=== PATIENT | male | born 1945 | race Asian ===

== ENCOUNTER 2022-10-26 09:15 | Day surgery (SDC) | payer MEDICARE, BC ==
[2022-10-26] VITALS (12 sets, daily range): BP systolic 114–159; BP diastolic 59–81
[~2022-10-26] VITALS: Ht 160 cm; Wt 70.9 kg
[2022-10-26] MEDS ORDERED: iohexol 350 MG/ML 50ML vial IV ONE (09:29)
[2022-10-26] MEDS ORDERED: iohexol 350MG/ML 100ml bottle IV ONE (09:29)
[2022-10-26] MEDS ORDERED: midazolam 1 mg/ML 2ml injection ONE (09:29)
[2022-10-26] MEDS ORDERED: fentaNYL/PF 50MCG/1 ML 2ML syringe ONE (09:29)
[2022-10-26] MEDS ORDERED: LIDOcaine 1% 30ml preserv. free vial ONE (09:29)
[2022-10-26] MEDS ORDERED: LOSA100T58 PO (10:05)
[2022-10-26] MEDS ORDERED: NITR0.4T48 SL (10:05)
[2022-10-26] MEDS ORDERED: OXYB5TAB16 PO (10:05)
[2022-10-26] MEDS ORDERED: HYDR-3686 PO (10:05)
[2022-10-26] MEDS ORDERED: AZEL30SP3 BOTHNARES (10:05)
[2022-10-26] MEDS ORDERED: TEST200V33 IM (10:05)
[2022-10-26] MEDS ORDERED: PIOG30TA72 PO (10:05)
[2022-10-26] MEDS ORDERED: LEVA15HF6 NAS (10:05)
[2022-10-26] MEDS ORDERED: METO5TAB85 PO (10:05)
[2022-10-26] MEDS ORDERED: FLUT16SP20 BOTHNARES (10:05)
[2022-10-26] MEDS ORDERED: MUPI22OI30 TOP (10:05)
[2022-10-26] MEDS ORDERED: MONT-40 PO (10:05)
[2022-10-26] MEDS ORDERED: METO-395 PO (10:05)
[2022-10-26] MEDS ORDERED: FLO0.4C PO (10:05)
[2022-10-26] MEDS ORDERED: METF-1203 PO (10:05)
[2022-10-26] MEDS ORDERED: FURO-150 PO (10:05)
[2022-10-26] MEDS ORDERED: GLIM2TAB6 PO (10:05)
[2022-10-26] MEDS ORDERED: ROSU40TA22 PO (10:05)
[2022-10-26] MEDS ORDERED: FLUT1BLS10 INH (10:05)
[2022-10-26] MEDS ORDERED: ASPI-611 PO (10:05)
[2022-10-26] MEDS ORDERED: FAMO40TA58 PO (10:05)
[2022-10-26 10:10] LABS: BASOPHILS % (AUTO) 0.7 % (0-1); EOSINOPHILS # (AUTO) 0.4 X10'3 (0-0.9); EOSINOPHILS % (AUTO) 6.7 % (0-6); HEMATOCRIT 40.8 % (42.0-52.0); HEMOGLOBIN 13.8 g/dl (14.0-17.9); LYMPHOCYTES # (AUTO) 1.6 X10'3 (1.1-4.8); MEAN CORPUSCULAR HEMOGLOBIN 31.6 PG (27.0-31.0); MEAN CORPUSCULAR HGB CONC 33.8 g/dL (33.0-36.5); MEAN CORPUSCULAR VOLUME 93.3 FL (78-98); MEAN PLATELET VOLUME 8.6 FL (7.4-10.4); MONOCYTES # (AUTO) 0.6 X10'3 (0-0.9); MONOCYTES % (AUTO) 11.4 % (2-12); NEUTROPHILS # (AUTO) 2.7 X10'3 (1.8-7.7); NEUTROPHILS % (AUTO) 50.2 % (42-75); PLATELET COUNT 191 X10'3 (140-440); RED BLOOD COUNT 4.37 X10'6 (4.70-6.10); RED CELL DISTRIBUTION WIDTH 14.5 % (11.5-14.5); WHITE BLOOD COUNT 5.3 X10'3 (4.5-11.0)
[2022-10-26 10:15] LABS: APTT 25 SECONDS (22-32)
[2022-10-26] MEDS ORDERED: normal saline 1,000 ML IV SCH (10:15)
[2022-10-26] MEDS ORDERED: nitroGLYCERIN 0.4mg SUBLingual tab SL PRN ×2 (10:15→12:15)
[2022-10-26] MEDS ORDERED: LORazepam 0.5 MG tablet PO PRN (10:15)
[2022-10-26] MEDS ORDERED: diphenhydrAMINE 25mg capsule PO PRN (10:15)
[2022-10-26] MEDS ORDERED: diphenhydrAMINE 50 mg/ml inj ONE (10:23)
[2022-10-26] MEDS ORDERED: insulin Lispro (HumaLOG) vial - multi-dose SQ SCH (10:30)
[2022-10-26] MEDS ORDERED: MESSAGE TO PHARMACY PO ONE (10:30)
[2022-10-26 10:36] LABS: ALBUMIN 3.9 G/DL (3.4-5.0); ANION GAP 9 (8-16); BLOOD UREA NITROGEN 13 MG/DL (7-18); CALCIUM 8.9 MG/DL (8.5-10.1); CHLORIDE 106 MMOL/L (99-107); GLUCOSE 101 MG/DL (70-104); POTASSIUM 3.8 MMOL/L (3.5-5.1); SODIUM 140 MMOL/L (135-145); TOTAL CARBON DIOXIDE 25.5 MMOL/L (24-32); eGFR 54 ML/MIN
[2022-10-26] MEDS ORDERED: HYDROcodone/acetaminophen 10/325mg tab PO PRN (12:15)
[2022-10-26] MEDS ORDERED: ondansetron/PF 4mg/2ml inj IV PRN (12:15)
[2022-10-26] MEDS ORDERED: normal saline 1000ml 1,000 ML IV SCH (12:15)
[2022-10-26] MEDS ORDERED: OXAZEpam 15mg capsule PO PRN (12:15)
[2022-10-26] MEDS ORDERED: proCHLORperazine 10 MG/2 ml inj IV PRN (12:15)
[2022-10-26] MEDS ORDERED: HYDROcodone/acetaminophen 5mg/325mg tablet PO PRN (12:15)
[2022-10-26] MEDS ORDERED: insulin glargine (Lantus) pen - multi-dose SQ SCH (21:00)
== END 2022-10-26 17:30 | disposition home or self-care (01) ==
LOC: SSTAY O 09:15
PROVIDERS: ATTEND Internal Medicine Cardiovascular Disease
DX: R94.39 Abnormal result of other cardiovascular function study (principal); I25.119 Atherosclerotic heart disease of native coronary artery with unspecified angina pectoris; J44.9 Chronic obstructive pulmonary disease, unspecified; I10 Essential (primary) hypertension; E11.9 Type 2 diabetes mellitus without complications; K21.9 Gastro-esophageal reflux disease without esophagitis; N40.1 Benign prostatic hyperplasia with lower urinary tract symptoms; E78.5 Hyperlipidemia, unspecified; I65.22 Occlusion and stenosis of left carotid artery; M47.9 Spondylosis, unspecified; Z88.0 Allergy status to penicillin; Z87.891 Personal history of nicotine dependence; Z86.73 Personal history of transient ischemic attack (TIA), and cerebral infarction without residual deficits; Z79.899 Other long term (current) drug therapy; Z79.01 Long term (current) use of anticoagulants
CPT/HCPCS: 36415; 71046; 80048; 82948; 83880; 84484; 85025; 85610; 85730; 93005; 93458; 99152; 99153; J1200; J1644; J1815; J2250; J3010; J3490; J7030; Q9967; A6258; C1760